=== PATIENT | male | born 1960 | race Caucasian/White ===

== ENCOUNTER 2023-12-01 22:00 | Emergency (ER) | payer OTHER, SELFPAY ==
[2023-12-01 22:18] VITALS: BP 190/99
[2023-12-01 22:24] LABS: % Eosinophils 5.1 % (0-6); % Immature Granulocytes 0.3 % (0-0.5); % Lymphocytes 31.3 % (20.5-51.1); % Monocytes 7.2 % (1.7-9.3); % Neutrophils 55.1 % (42.2-75.2); Absolute Basophils 0.1 10^3/uL (0-0.2); Absolute Eosinophils 0.4 10^3/uL (0-0.7); Absolute Lymphocytes 2.3 10^3/uL (1.2-3.4); Absolute Monocytes 0.5 10^3/uL (0.1-0.6); Hematocrit 39.5 % (39.0-52.0); Hemoglobin 13.4 g/dL (13.0-18.0); Mean Corp Hgb Conc. 33.9 g/dL (33.0-37.0); Mean Corpuscular Volume 91.4 fL (80.0-94.0); Mean Platelet Volume 10.8 fL (7.4-10.4); Nucleated Red Blood Cells % 0 % (-); Platelet Count 234 10^3/uL (130-400); Red Blood Cell Count 4.32 10^6/uL (4.70-6.10); Red Cell Dist. Width 13.4 % (11.5-14.5); White Blood Cell Count 7.2 10^3/uL (4.8-10.8)
[2023-12-01 22:38] LABS: ALT (SGPT) 24 U/L (0-50); AST (SGOT) 27 U/L (17-59); Albumin 4.4 g/dl (3.5-5.0); Alkaline Phosphatase 97 U/L (38-126); Blood Urea Nitrogen 17 mg/dl (9-20); Calcium 9.3 mg/dl (8.4-10.2); Carbon Dioxide 27 mmol/L (22-30); Chloride 108 mmol/L (98-107); Glucose 117 mg/dl (70-99); Potassium 4.1 mmol/L (3.5-5.1); Sodium 145 mmol/L (135-145); Total Bilirubin 0.3 mg/dl (0.2-1.3); Total Protein 7.3 g/dl (6.3-8.2); eGFR > 60.00
[2023-12-01 22:50] LABS: Troponin I < 0.012 ng/ml
[2023-12-02] VITALS (9 sets, daily range): BP systolic 152–187; BP diastolic 82–94; BMI 26.0
--- NOTE | 2023-12-02 01:21 | ED.GENMED ---
History of Present Illness
<BERNA Thrasher - Last Filed: 12/02/23 04:27>
General
Chief Complaint: Chest Pain
Source: patient
Time Seen by Provider: 12/02/23 01:19
Nursing documentation reviewed up to this point in time: agreed with
History of Present Illness
History of Present Illness:
A 63 yo male with a PMH of HTN, HF, PE, peripheral neruopathy presents to the ED for chest pain x 12 hours. He states the hes unaware of when the chest pain began but assumes it to be around 12 noon yesterday. He stated that he's had similar
episodes of similar chest pain in he past, but that today it was much worse than it has ever been before. He states the it feels like someone is sitting on his chest and that theres an intense pressure overlying his chest. He states that his pain
has improved slightly since admission. He states that he took his BP meds after sxs started but that they didn't help. He denies any radiation. He stated that after sx onst his bp continued to rise after taking his bp meds and that was why he came
in today. He states that his bp normally runs in the 140s and 130s systolic. 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 Over the last 2 years hes states that his EF has
decreased and is now sitting at 30%. He follows with his crew foreman annually with his most recent myocardial stress test being on 10/02/22 to which he stated was normal. He denies SOB, cough, abdominal pain, N/V, dizziness, or palpitations.
Past History
<BERNA Thrasher - Last Filed: 12/02/23 04:27>
Past History
ED Past Medical History: CHF, Other (pneumonia, cardiomyopathy), Other (pulmonary embolism) and Other (LV thrombus)
ED Past Surgical History: Cardiac
Social History
Tobacco: Non-smoker
Alcohol: None
Drug: None
Personal:
Living: with family
Employment: Employed
Family History
Family History: CAD
Review of Systems
<BERNA Thrasher - Last Filed: 12/02/23 04:27>
Review of Systems
All Other Systems: ROS reviewed and negative except as documented in HPI and ROS
Phy Exam
<BERNA Thrasher - Last Filed: 12/02/23 04:27>
General Physical Exam
General Presentation: well appearing and no apparent distress
General Skin: warm and dry
General Habitus: normal
General Mental: alert
General Hydration: appears well hydrated
Eye Exam
Eye Exam: PERRL and EOMI
Cardiovascular Exam
Cardiovascular Exam: no edema, no gallop, no murmur, normal peripheral pulses and bradycardia
Pulmonary Exam
Pulmonary Exam: lungs clear, no respiratory distress, no rales, no crackles, no wheezing and no cough
Neurological Exam
Neurological Exam: alert and oriented x3
Musculoskeletal Exam
Musculoskeletal Exam: full ROM
Skin Exam
Skin Exam: normal color, warm/dry and no rash
Psychiatric Exam
Psychiatric Exam: normal mood/affect
Scores
<Jair Rizzo [facility] - Last Filed: 12/02/23 04:27>
Heart Score for Chest Pain Patients
STEMI patient?: No
History: Slightly or Non-Suspicious
ECG: Nonspecific Repolarization (t wave inversion v3 and v4)
Age: >45 - <65 years
Risk Factors: 1 or 2 Risk Factors
Troponin: </= Normal Limit
Heart Score for Chest Pain Patients: 3
Heart Score Risk: 2.5% MACE over next 6 weeks
<Lex Pride DO - Last Filed: 12/02/23 04:31>
Heart Score for Chest Pain Patients
Heart Score for Chest Pain Patients: 3
Heart Score Risk: 2.5% MACE over next 6 weeks
Course
<BERNA Thrasher - Last Filed: 12/02/23 04:27>
Orders/Labs/Results
Orders:
Orders
12/01/23 22:02
Electrocardiogram (*1) Urgent
Reason for Study: Chest Pain
12/01/23 22:03
EKG- Treatment ONCE
12/01/23 22:10
Complete Blood Count/With Diff Urgent
Comprehensive Metabolic Panel Urgent
Troponin I Urgent
12/02/23 02:05
CR Chest - 2 Views Urgent
Comment:
Reason For Exam: cp
12/02/23 02:12
HydrALAZINE [Apresoline] 10 mg IV NOW STA
12/02/23 02:17
NT-proBNP Urgent
Troponin I Urgent
Abnormal Lab Results
12/01/23
22:10
RBC 4.32 L 10^6/uL
(4.70-6.10)
MPV 10.8 H fL
(7.4-10.4)
Chloride 108 H mmol/L
(98-107)
Glucose 117 H mg/dl
(70-99)
12/01/23 22:10
12/01/23 22:10
Vital Signs
Initial and Last Documented VS:
Initial Vital Signs
Temp Pulse Resp BP Pulse Ox
97.7 F 60 16 190/99 99
12/01/23 22:18 12/01/23 22:18 12/01/23 22:18 12/01/23 22:18 12/01/23 22:18
Last Documented Vital Signs
Temp Pulse Resp BP Pulse Ox
97.6 F 62 19 179/91 99
12/02/23 00:36 12/02/23 02:30 12/02/23 02:30 12/02/23 02:25 12/02/23 02:30
<Lex Pride, DO - Last Filed: 12/02/23 04:31>
Orders/Labs/Results
Orders:
Orders
12/01/23 22:02
Electrocardiogram (*1) Urgent
Reason for Study: Chest Pain
12/01/23 22:03
EKG- Treatment ONCE
12/01/23 22:10
Complete Blood Count/With Diff Urgent
Comprehensive Metabolic Panel Urgent
Troponin I Urgent
12/02/23 02:05
CR Chest - 2 Views Urgent
Comment:
Reason For Exam: cp
12/02/23 02:12
HydrALAZINE [Apresoline] 10 mg IV NOW STA
12/02/23 02:17
NT-proBNP Urgent
Troponin I Urgent
Abnormal Lab Results
12/01/23
22:10
RBC 4.32 L 10^6/uL
(4.70-6.10)
MPV 10.8 H fL
(7.4-10.4)
Chloride 108 H mmol/L
(98-107)
Glucose 117 H mg/dl
(70-99)
12/01/23 22:10
12/01/23 22:10
Vital Signs
Initial and Last Documented VS:
Initial Vital Signs
Temp Pulse Resp BP Pulse Ox
97.7 F 60 16 190/99 99
12/01/23 22:18 12/01/23 22:18 12/01/23 22:18 12/01/23 22:18 12/01/23 22:18
Last Documented Vital Signs
Temp Pulse Resp BP Pulse Ox
97.6 F 62 19 179/91 99
12/02/23 00:36 12/02/23 02:30 12/02/23 02:30 12/02/23 02:25 12/02/23 02:30
<BERNA Thrasher - Last Filed: 12/02/23 04:27>
MDM/Problems Addressed
Differential Diagnosis Includes:
chf exacerbation, UT, hypertensive urgency
<Lex Pride DO - Last Filed: 12/02/23 04:31>
*Critical Care Note
Total Time (30-74mins, 75-104mins- exclusive of procedures): Not Applicable
<BERNA Thrasher - Last Filed: 12/02/23 04:27>
Update Note
Update Note:
0216: 12/02/23: Discussed labs, history, and plan with Dr. Pride and patient. Will administer hydralazine to reduce pressure. Will order chest xray. Will recheck troponins, bnp. Plan to instruct patient to patient to follow up with with his
crew foreman within 1 week of discharge.
0425: 12/02/2023: Talked with patient about sxs. States chest pressure/ weight has improved significantly since administration of hydralazine. BPs are sitting low 150s/80s right now. Will continue to discuss care with Dr. Pride and update patient
as needed.
ED Attending Note
<BENRA Thrasher - Last Filed: 12/02/23 04:27>
-
Portions of this chart may have been created with voice recognition software.� Occasional wrong word or��sound alike� substitutions may have occurred due to the inherent limitations of voice recognition software.
<Lex Pride DO - Last Filed: 12/02/23 04:31>
ED Attending Note
Patient seen and examined by attending physician: Yes
ED Attending Note:
Seen with student examined independently prior records reviewed low EF patient, clean coronaries by patient report hypertension follow-up with Dr. Day and EP, had cardiac devices which have been removed, presents with shortness of breath and chest
pressure associated with high blood
Discharge Plan
Departure
Patient Disposition: Home (Routine Discharge)
Date of Disposition: 12/02/23
Time of Disposition: 04:30
Patient with high blood pressure during this ER visit?: Yes
Condition: Good
Covid-19: Negative COVID-19
Discharge Problem:
Chest pain
Instructions: Chest Pain DCA Follow Up
Prescriptions:
No Action
carvedilol 12.5 MG tablet
12.5 mg PO BID
aspirin 325 MG tablet
325 mg PO DAILY
Patient Comments:
States only takes when he remembers. Did not take today.
losartan 50 MG tablet
100 mg PO DAILY
cyclobenzaprine 10 MG tablet
10 mg PO TIDPRN PRN (Reason: back pain)
oxycodone-acetaminophen 5 MG/325 MG tablet
1 tab PO Q4HPRN PRN (Reason: pain) Qty: 17 0RF
gabapentin 300 MG capsule
300 mg PO BID Qty: 14 0RF
lidocaine 1 PATCH adhesive patch,medicated
1 patch topical DAILY Qty: 5 0RF
Rx Instructions:
ON FOR 12 HOURS, OFF FOR 12 HOURS
naproxen 500 MG tablet
500 mg PO BID Qty: 14 0RF
Rx Instructions:
Take with food.
Referrals:
Jeyson Pimentel MD [Family Provider] - Next open appointment
Dharmesh Day MD [Active] - Next open appointment
Interventions
Interventions:
*Risk Screen - Suicide Last Done: 12/01/23 22:18
*Neglect/Abuse Screening Last Done: 12/01/23 22:18
Discharge Date and Time
Print Language: BENGALI
[2023-12-02] MEDS: APRESOLINE 10 MG IV (02:25)
[2023-12-02 02:57] LABS: NT-proBNP 135 pg/ml; Troponin I < 0.012 ng/ml
== END 2023-12-02 05:37 | disposition home or self-care (01) ==
LOC: EMR 22:00
PROVIDERS: Emergency Medicine; EMERGENCY PHYSICIAN Emergency Medicine; FAMILY PHYSICIAN Family Medicine
DX: R07.89 Other chest pain (principal); I11.0 Hypertensive heart disease with heart failure; I50.9 Heart failure, unspecified; Z86.711 Personal history of pulmonary embolism
CPT/HCPCS: 99285; 96374; 71046; 80053; 83880; 84484; 85025; 93005

== ENCOUNTER → 2023-12-25 09:07 | Outpatient (REF) | payer OTHER, SELFPAY | LOC: RCS 09:07 | PROVIDERS: ATTENDING PHYSICIAN Physician Assistant; FAMILY PHYSICIAN Family Medicine | DX: I42.8 Other cardiomyopathies (principal); I10 Essential (primary) hypertension; I47.20 Ventricular tachycardia, unspecified; R06.09 Other forms of dyspnea | CPT/HCPCS: 93306 ==

== ENCOUNTER 2024-01-12 17:07 | Inpatient (IN) | payer OTHER, SELFPAY ==
[2024-01-12] VITALS (15 sets, daily range): BP systolic 107–170; BP diastolic 73–96; BMI 24.3
[2024-01-12 12:25] LABS: % Basophils 0.8 % (0-2); % Eosinophils 5.3 % (0-6); % Immature Granulocytes 0.3 % (0-0.5); % Lymphocytes 27.1 % (20.5-51.1); % Monocytes 7.3 % (1.7-9.3); % Neutrophils 59.2 % (42.2-75.2); Absolute Basophils 0.1 10^3/uL (0-0.2); Absolute Eosinophils 0.3 10^3/uL (0-0.7); Absolute Lymphocytes 1.7 10^3/uL (1.2-3.4); Absolute Monocytes 0.5 10^3/uL (0.1-0.6); Absolute Neutrophils 3.7 10^3/uL (1.4-6.5); Hematocrit 40.7 % (39.0-52.0); Hemoglobin 14.1 g/dL (13.0-18.0); Mean Corp Hgb Conc. 34.6 g/dL (33.0-37.0); Mean Corpuscular Hgb 30.9 pg (27.0-31.0); Mean Corpuscular Volume 89.1 fL (80.0-94.0); Nucleated Red Blood Cells % 0 % (-); Platelet Count 219 10^3/uL (130-400); Red Blood Cell Count 4.57 10^6/uL (4.70-6.10); Red Cell Dist. Width 12.3 % (11.5-14.5); White Blood Cell Count 6.3 10^3/uL (4.8-10.8)
[2024-01-12 12:40] LABS: Albumin 4.4 g/dl (3.5-5.0); Carbon Dioxide 24 mmol/L (22-30); eGFR > 60.00
[2024-01-12 13:00] LABS: Troponin I 0.043 ng/ml
[2024-01-12 13:03] LABS: ALT (SGPT) 32 U/L (0-50); AST (SGOT) 36 U/L (17-59); Alkaline Phosphatase 111 U/L (38-126); Blood Urea Nitrogen 22 mg/dl (9-20); Calcium 9.4 mg/dl (8.4-10.2); Chloride 106 mmol/L (98-107); Glucose 148 mg/dl (70-99); Potassium 4.4 mmol/L (3.5-5.1); Sodium 142 mmol/L (135-145); Total Bilirubin 0.4 mg/dl (0.2-1.3); Total Protein 7.6 g/dl (6.3-8.2)
--- NOTE | 2024-01-12 13:21 | ED.GENMED ---
History of Present Illness
General
Chief Complaint: Chest Pain
Time Seen by Provider: 01/12/24 13:10
History of Present Illness
History of Present Illness:
63-year-old male presents to the emergency department for evaluation of intense chest pain that began at the completion of intercourse last night, pain did resolve briefly this morning however when he went to work the symptoms abruptly worsened
despite minimal exertion. He continues to have pain while at rest, currently rated 8 out of 10. Is never experienced similar pain. Does have a known history of cardiomyopathy with a last ejection fraction on echo of 45%. He has not taken any
medication for the symptoms this morning. Denies shortness of breath, fever, or chills.
Past History
Past History
ED Past Medical History: CHF, Other (pneumonia, cardiomyopathy), Other (pulmonary embolism) and Other (LV thrombus)
ED Past Surgical History: Cardiac
Social History
Tobacco: Non-smoker
Alcohol: None
Drug: None
Personal:
Living: with family
Employment: Employed
Family History
Family History: CAD
Review of Systems
Review of Systems
Allergies reviewed?: Yes
All Other Systems: ROS reviewed and negative except as documented in HPI and ROS
Phy Exam
Physical Exam
Physical Exam:
GEN: Well appearing, NAD, WDWN
HEENT: Oral mucosa moist, no scleral icterus
Cardiac: Regular rate and rhythm, no murmurs
Lung: No respiratory distress, no tachypnea, lungs clear to auscultation bilaterally
MSK: No gross deformity or injuries
Skin: Good color, no pallor or jaundice, no rashes
Neuro: AO x3, moves all extremities freely
Psych: Calm, cooperative
Scores
Heart Score for Chest Pain Patients
STEMI patient?: No
History: Highly Suspicious
ECG: Nonspecific Repolarization
Age: >45 - <65 years
Risk Factors: 1 or 2 Risk Factors
Troponin: >1 - <3 x Normal Limit
Heart Score for Chest Pain Patients: 6
Heart Score Risk: 20.3% MACE over next 6 weeks
Course
Orders/Labs/Results
Orders:
Orders
01/12/24 11:49
EKG [Electrocardiogram (*1)] Stat
Reason for Study: Chest Pain
EKG- Treatment ONCE
01/12/24 12:11
Complete Blood Count/With Diff Urgent
Comprehensive Metabolic Panel Urgent
NT-proBNP Urgent
Comment: ADD ON
Troponin I Urgent
01/12/24 13:18
Add On- LAB Urgent
Tests Added?: BNP
Aspirin Chewable [Low Strength Aspirin] 324 mg PO NOW STA
CR Chest Portable - 1 View Urgent
Comment:
Reason For Exam: chest pain
Reason Study Needs to be Portable: Unable to Transport
01/12/24 13:19
Nitroglycerin Sublingual [Nitrostat (Sublingual)] 0.4 mg SL [id number] PRN
01/12/24 13:31
Protime/PTT Urgent
01/12/24 14:13
PTT Urgent
Comment: Obtain baseline before beginning heparin infusion if not already collected
Heparin 4,000 units IV NOW STA
Pharmacy Request to Place See Dose Instructions PO NOW STA
Discontinue all Active Warfarin orders?: Yes
Nursing to Place Non Medication Order As Directed
Physician Order: PTT 6 hours after initial start of Heparin infusion
01/12/24 14:15
Heparin 47528 Units/250 ml 25,000 units in 250 ml IV PER PROTOCOL
Weight to be used for heparin protocol in kilograms (kg):: 72.575
Protocol:: Cardiac Tx/Acute Coronary
PTT Goal Range to be used:: PTT 73 to 111 seconds
Order type:: Initial
INITIAL Infusion Dose (UNITS/KG/hr) & then follow protocol:: 15 units/kg/hr
Infusion Dose in UNITS/hr & then follow protocol (UNITS/hr):: 1,100
INFUSION RATE in mL/hr & then follow protocol (mL/hr):: 11
PTT less than or equal to 64 seconds:: Increase rate by 200 units/hr (+ 2 mL/hr)
PTT 64.1 to 72.9 seconds:: Increase rate by 100 units/hr (+ 1 mL/hr)
PTT 73 to 111 seconds:: Target Range. No change in rate.
PTT 111.1 to 130.9 seconds:: Decrease rate by 100 units/hr (- 1 mL/hr)
PTT 131 to 199.9 seconds:: HOLD for 1 hr. Then decrease rate by 200 units/hr (- 2 mL/hr)
PTT greater than or equal to 200 seconds:: HOLD for 2 hrs & Notify Provider. Then decrease by 200 units/hr (-
2 mL/hr)
Lab follow-up:: Each change, PTT q6h until 2 consecutive are therapeutic. Then PTT
daily.
Nitroglycerin 100 mg/250 ml [Nitroglycerin Premix] 100 mg in 250 ml IV PER PROTOCOL
Initial dose in mcg/min, then titrate:: 40
Titrate to keep:: Chest Pain Free
Titrate by mcg/min:: 5 mcg/min, may increase by 10 mcg/min if dose > 20 mcg/min
Frequency of titrations (minutes):: every 3-5 minutes
Maximum dose in mcg/min:: 200
Begin to taper infusion when:: Remained at goal for 2hrs
Taper by mcg/min:: 5 mcg/min
Frequency of taper (minutes) if patient maintains goal:: 30
Taper to off?: Yes
If infusion off & no longer maintaining goal:: Contact Provider
01/12/24 15:[address] See Dose Instructions IV DIRECTED
Abnormal Lab Results
01/12/24
12:11
RBC 4.57 L 10^6/uL
(4.70-6.10)
MPV 11.0 H fL
(7.4-10.4)
BUN 22 H mg/dl
(9-20)
Glucose 148 H mg/dl
(70-99)
Troponin I 0.043 H* ng/ml
01/12/24 12:11
01/12/24 12:11
Vital Signs
Initial and Last Documented VS:
Initial Vital Signs
Temp Pulse Resp BP Pulse Ox
97.6 F 86 16 170/96 100
01/12/24 12:00 01/12/24 12:00 01/12/24 12:00 01/12/24 12:00 01/12/24 12:00
Last Documented Vital Signs
Temp Pulse Resp BP Pulse Ox
97.6 F 86 16 140/108 100
01/12/24 12:00 01/12/24 12:00 01/12/24 12:00 01/12/24 14:04 01/12/24 12:00
MDM/Problems Addressed
MDM/Problems Addressed:
Patient presenting with unstable chest pain that began at the completion of intercourse but persisted at rest this morning. EKG is comparable to past tracings however troponin is elevated and he continues with chest pain in the emergency department
despite multiple doses of sublingual nitroglycerin. High level of concern for ACS/NSTEMI, will admit for cardiology evaluation, IV heparin and IV nitroglycerin initiated in the emergency department due to persistent pain
Comment
Comment:
EKG independently interpreted by me reveals a normal sinus rhythm at a rate of 73 with lateral T wave inversions and ST depressions comparable to prior EKG tracings
*Critical Care Note
Total Time (30-74mins, 75-104mins- exclusive of procedures): 40 minutes
comment:
Critical care time: 40 minutes
Critical care time was exclusive of: Separately billable procedures, treating other patients, and teaching time
Critical care was necessary to treat or prevent imminent or life-threatening deterioration of the following conditions: NSTEMI
Critical care time spent personally by me on the following activities:
[x] Review of old charts
[x] Obtaining history from patient or surrogate
[x] Ordering and review of the laboratory studies
[x] Ordering and review of radiographic studies
[x] Ordering and performing treatments and interventions
[x] Patient patient's response to treatment
[x] Development of treatment plan with patient or surrogate
ED Attending Note
-
Portions of this chart may have been created with voice recognition software.� Occasional wrong word or��sound alike� substitutions may have occurred due to the inherent limitations of voice recognition software.
Discharge Plan
Departure
Patient Disposition: Admit
Date of Disposition: 01/12/24
Time of Disposition: 14:16
Admit to: IVU
Presentation/result/management discussed w/ accepting MD/DO: Hospitalist
Discharge Problem:
Acute non-ST elevation myocardial infarction (NSTEMI)
Prescriptions:
No Action
acetaminophen [Tylenol] 325 mg Tablet
650 mg PO DAILYPRN PRN (Reason: mild pain)
carvedilol [Coreg] 6.25 mg Tablet
6.25 mg PO BID
amlodipine [Norvasc] 5 mg Tablet
5 mg PO QPM
naproxen sodium [Aleve] 220 mg Tablet
440 mg PO BIDPRN PRN (Reason: mild pain)
rosuvastatin [Crestor] 20 mg Tablet
20 mg PO DAILY
Centrum MultiGummies 80 mcg Tablet,Chewable
1 tab PO Q48H
magnesium oxide 400 mg magnesium Tablet
400 mg PO DAILY
Neuriva Original 100-100 mg Capsule
1 cap PO DAILY
Focus Factor capsule
1 cap PO DAILY
Discharge Date and Time
Print Language: CYMRO
[2024-01-12] MEDS: LOW STRENGTH ASPIRIN 324 MG PO (13:27)
[2024-01-12] MEDS: NITROSTAT (SUBLINGUAL) 0.4 MG SL ×3 (13:28→14:04)
[2024-01-12 13:55] LABS: PT 12.4 Sec (11.4-14.6)
[2024-01-12] MEDS: NITROGLYCERIN PREMIX 250 IV (14:31)
[2024-01-12 14:43] LABS: NT-proBNP 150 pg/ml
[2024-01-12] MEDS: HEPARIN 4000 UNITS IV (14:59)
[2024-01-12] MEDS: HEPARIN 25000 UNITS/250 ML IV (15:00)
--- NOTE | 2024-01-12 15:20 | CON.CAR ---
Addendum entered and electronically signed by Bud Wagoner DO 01/12/24 16:04:
I saw and examined the patient.
The Senior Software Development Engineer's note was reviewed and I agree with the note.
Comment:
Plan:
Given his recurrent symptoms and second ER visit with chest pain, cardiovascular risk factors and rising troponins, discussed cardiac cath to eval coronary anatomy. He is agreeable to this.
Pending cath findings, he will require improved bp control as both presentations involved him being very hypertensive with SBPs 190 mmHgs today.
Cont Coreg, Norvasc, for now.
Cont IV Heparin
Cont IV nitro
EKG with ST-T changes but similar to prior EKG.
Recent echo with EF 45%, slight improvement in ER
Last cath in 2007 without obstructive CAD
Pending results of cath will consider repeat echo.
Pt and his agree and they were appreciative.
Original Note:
Consultation
Consultation Request
Date/Time Consultation Requested: 01/12/2024
Date/Time Consultation Performed: 01/12/2024
Requesting Provider: Ranjeet Holloway PA-C
Performing Provider: Emily Ramirez PA-C for Dr. Bud Wagoner
Reason for Consultation: Chest pain
Medical History
-
History of Present Illness:
Patient is a 63-year-old male with past medical history significant for nonischemic cardiomyopathy, hypertension, DVT/PE, hyperlipidemia, NSVT status post ICD with subsequent ICD explant in 2019 who presents to emergency department 01/12/2024 with
chest pain radiating into left arm. Patient was in emergency department in November 2023 for chest pain and was noted to be hypertensive. Troponins were negative and symptoms improved with treatment of blood pressure. He underwent an outpatient
echocardiogram in December 2023 which showed EF of 45% with mild global hypokinesis. Patient reports he was chest pain free until the late evening of 01/10 when he developed chest pain after having intercourse. Patient went to sleep and noted
waxing and waning chest discomfort throughout the night. Upon awakening while getting ready to go to work chest pain became very intense with radiation down his left arm. On presentation to emergency department he was once again noted to be
hypertensive with blood pressure of 192/108. EKG showed sinus rhythm with T wave abnormalities in lateral leads. Initial troponin was 0.043. Chest x-ray showed no acute cardiopulmonary disease. Patient was provided sublingual nitroglycerin with
improvement of chest discomfort and blood pressure. He was placed on IV nitro and heparin drip. At time of this evaluation patient currently denying chest pain but reports he has an ache or heaviness in his chest. He also reports recently he has
had increased GERD and reflux symptoms and has been using a lot of Mylanta.
Past medical history:
Nonischemic cardiomyopathy
Hypertension
DVT/PE
History of LV thrombus
Hyperlipidemia
NSVT
ICD implant that was subsequently explanted in 2019 after lead fracture
Past Medical History
Past Medical History: Other (See HPI)
Past Surgical History: Cardiac (ICD implant with subsequent explant in 2019), Orthopedic (Meniscus repair), Urological (Vasectomy) and Other (Lumbar injections)
Social History
Tobacco: Non-Smoker
Alcohol: None
Drug: None
Personal:
Living: With Family
Employment: Employed
Family History
Family History: CAD
Allergies / Home Medications
Allergy/AdvReac Type Severity Reaction Status Date / Time
No Known Allergies Allergy Verified 12/01/23 22:18
�Medication �Instructions �Recorded �Confirmed �Type
Focus Factor 1 cap PO DAILY 01/12/24 01/12/24 History
acetaminophen 325 mg tablet 650 mg PO DAILYPRN PRN mild pain 01/12/24 01/12/24 History
(Tylenol)
amlodipine 5 mg tablet (Norvasc) 5 mg PO QPM 01/12/24 01/12/24 History
carvedilol 6.25 mg tablet (Coreg) 6.25 mg PO BID 01/12/24 01/12/24 History
coffee extract 100 mg-phosphatidyl 1 cap PO DAILY 01/12/24 01/12/24 History
serine 100 mg capsule (Neuriva
Original)
magnesium oxide 400 mg PO DAILY 01/12/24 01/12/24 History
multivitamin with minerals-folic 1 tab PO Q48H 01/12/24 01/12/24 History
acid 80 mcg chewable tablet
naproxen sodium 220 mg tablet 440 mg PO BIDPRN PRN mild pain 01/12/24 01/12/24 History
(Aleve)
rosuvastatin 20 mg tablet (Crestor) 20 mg PO DAILY 01/12/24 01/12/24 History
Review of Systems
-
History Source: Patient
All other systems: Negative unless noted
Physical Exam
Vital Signs
Temp Pulse Resp BP Pulse Ox
97.6 F 72 18 128/77 98
01/12/24 12:00 01/12/24 14:45 01/12/24 14:45 01/12/24 14:30 01/12/24 14:45
GEN: No distress, awake, Ox3
HEENT: supple, anicteric, mmm
LUNGS: Few faint crackles at left base otherwise CTA, no wheezes/rales
CV: Reg, S1/S2, no murmur, rub or gallop
ABD: soft, BS+, NT/ND
EXT: No edema, clubbing or cyanosis
NEURO: Gross non-focal
SKIN: No rash, warm, dry, pink
Lab Results
01/12/24 12:11
01/12/24 12:11
Troponin I 0.043 ng/ml H* 01/12/24 12:11
Ixj-T-Lxjuhuulwpo Pept 150 pg/ml 01/12/24 12:11
Impression / Plan
-
PCP: Jeyson back neck
Stewarding Supervisor: Dharmesh Day
Impression:
Presents 01/12/2024 with waxing and waning chest pain associated with pain in left arm
Abnormal troponin
Hypertensive urgency
Nonischemic cardiomyopathy
Hypertension
DVT/PE
History of LV thrombus
Hyperlipidemia
NSVT
ICD implant that was subsequently explanted in 2019 after lead fracture
Echo 12/25/2023: EF 45% with borderline LVH and mild global hypokinesis. No significant valvular disease. Normal PAP
Echo 11/07/2022: EF 35 to 40%. Global hypokinesis. Mild concentric LVH. No significant valvular disease
Cardiac cath 01/12/2024: Pending
Cardiac catheterization 2007: No significant coronary artery disease
Plan:
-Presents 01/12/2024 with waxing and waning chest pain starting 01/11/24 worsening in morning of 01/12/24 associated with pain in left arm prompting patient to come to emergency department.
-Hypertensive urgency as patient was found to be hypertensive on arrival with blood pressure of 170/96, 192/108.
-Chest x-ray without acute abnormality. EKG abnormal at baseline with T wave abnormality in anterolateral leads similar to prior tracings.
-Abnormal troponin, initial 0.043 with repeat 0.078. Unclear if this is related to hypertensive urgency or ACS.
-Patient's symptoms improved with sublingual nitroglycerin and currently on IV nitro drip as well as heparin drip. Blood pressure has also normalized
-Given patient has been in emergency department twice in the last 6 weeks plan is to move forward with cardiac catheterization to rule out ischemia as a cause of his chest pain
-Patient will need more intensive blood pressure management. Pending results of catheterization can decide which antihypertensive agent can be advanced
-Would check lipids in a.m.
-Patient had echo 12/25/2023 with EF 45% and global hypokinesis and no significant valvular disease. Would hold on repeating at this time
-Pending results of catheterization will depend the patient should remain on IV heparin.
HPI 01/12/24:
Patient is a 63-year-old male with past medical history significant for nonischemic cardiomyopathy, hypertension, DVT/PE, hyperlipidemia, NSVT status post ICD with subsequent ICD explant in 2019 who presents to emergency department 01/12/2024 with
chest pain radiating into left arm. Patient was in emergency department in November 2023 for chest pain and was noted to be hypertensive. Troponins were negative and symptoms improved with treatment of blood pressure. He underwent an outpatient
echocardiogram in December 2023 which showed EF of 45% with mild global hypokinesis. Patient reports he was chest pain free until the late evening of 01/10 when he developed chest pain after having intercourse. Patient went to sleep and noted
waxing and waning chest discomfort throughout the night. Upon awakening while getting ready to go to work chest pain became very intense with radiation down his left arm. On presentation to emergency department he was once again noted to be
hypertensive with blood pressure of 192/108. EKG showed sinus rhythm with T wave abnormalities in lateral leads. Initial troponin was 0.043. Chest x-ray showed no acute cardiopulmonary disease. Patient was provided sublingual nitroglycerin with
improvement of chest discomfort and blood pressure. He was placed on IV nitro and heparin drip. At time of this evaluation patient currently denying chest pain but reports he has an ache or heaviness in his chest. He also reports recently he has
had increased GERD and reflux symptoms and has been using a lot of Mylanta.
Data Reviewed
-
EKG: Report Reviewed by me, Discussed with Physician, Discussed with Nurse, Discussed with Patient and Discussed with Family
Radiology: Report Reviewed by me, Discussed with Physician, Discussed with Nurse, Discussed with Patient and Discussed with Family
Labs: Labs Reviewed by me, Discussed with Physician, Discussed with Nurse, Discussed with Patient and Discussed with Family
Old Records: Reviewed
[2024-01-12 15:35] LABS: Troponin I 0.078 ng/ml
--- NOTE | 2024-01-12 15:45 | HPS.HSE ---
Family Physician
-
Family Physician: Jeyson Pimentel
Chief Complaint
-
chest pain
History of Present Illness
63-year-old male past medical history of ischemic cardiomyopathy with EF 45% ventricular tachycardia, pulmonary embolism, LV thrombus, prior DVT,, hypertension, presenting with intense chest pain after having sex last night. Pain did resolve
briefly with this morning but abruptly got worse despite minimal exertion. He continues to have pain while at rest. He had never had similar pain before.
He denies smoking. He drinks alcohol occasionally.
Medical History
Past Medical History
Past Medical History: Reports Other ( ischemic cardiomyopathy with EF 45% ventricular tachycardia, pulmonary embolism, LV thrombus, prior DVT,, hypertension,)
Past Surgical History: Reports None
Social History
Tobacco: Non-smoker
Alcohol: Occasional
Drug: None
Family History
Family History: Not pertinent
Allergies / Home Medications
Allergies reflects when Allergies were last updated in [facility].
Home Medications with original date entered in [facility]
Allergy/Medication List:
Allergies
Allergy/AdvReac Type Severity Reaction Status Date / Time
No Known Allergies Allergy Verified 12/01/23 22:18
Home Medications
Focus Factor 1 cap PO DAILY 01/12/24
acetaminophen 325 mg tablet (Tylenol) 650 mg PO DAILYPRN PRN mild pain 01/12/24
amlodipine 5 mg tablet (Norvasc) 5 mg PO QPM 01/12/24
carvedilol 6.25 mg tablet (Coreg) 6.25 mg PO BID 01/12/24
coffee extract 100 mg-phosphatidyl serine 100 mg capsule (Neuriva Original) 1 cap PO DAILY 01/12/24
magnesium oxide 400 mg PO DAILY 01/12/24
multivitamin with minerals-folic acid 80 mcg chewable tablet 1 tab PO Q48H 01/12/24
naproxen sodium 220 mg tablet (Aleve) 440 mg PO BIDPRN PRN mild pain 01/12/24
rosuvastatin 20 mg tablet (Crestor) 20 mg PO DAILY 01/12/24
Review of Systems
-
History Source: Patient
A 12 point ROS was completed and negative except as noted: Yes
Constitutional: Reports No Symptoms
EENT: Reports No Symptoms
Respiratory: Reports See HPI
Cardiac: Reports See HPI
Abdomen/GI: Reports No Symptoms
: Reports No Symptoms
Musculoskeletal: Reports No Symptoms
Skin: Reports No Symptoms
Neurological: Reports No Symptoms
Endocrine: Reports No Symptoms
Hematologic/Lymphatic: Reports No Symptoms
Psych: Reports No Symptoms
Physical Exam
Vital Signs
Vital Signs
Temp Pulse Resp BP Pulse Ox
97.6 F 72 18 128/77 98
01/12/24 12:00 01/12/24 14:45 01/12/24 14:45 01/12/24 14:30 01/12/24 14:45
Physical Exam
General: Well Developed, Well Nourished and No Apparent Distress
HEENT: NormoCephalic, Moist mucous membranes and Atraumatic
Respiratory: Clear
Cardiac: S1/S2 and Regular Rhythm; No Murmur or Rub
GI: Soft, Non Tender, Non Distended and Normal Bowel Sounds; No Organomegaly
Rectal: Deferred by Provider
Musculoskeletal: No Clubbing, No Cyanosis and No Edema
Skin: No Rash
Neuro: Nonfocal/grossly intact
Laboratory Results
-
01/12/24 12:11
01/12/24 12:11
Laboratory Results
PT 12.4 Sec (11.4-14.6) 01/12/24 13:31
INR 0.90 01/12/24 13:31
APTT Cancelled 01/12/24 14:13
Total Bilirubin 0.4 mg/dl (0.2-1.3) 01/12/24 12:11
AST 36 U/L (17-59) 01/12/24 12:11
ALT 32 U/L (0-50) 01/12/24 12:11
Alkaline Phosphatase 111 U/L (38-126) 01/12/24 12:11
Troponin I 0.078 ng/ml H* D 01/12/24 14:52
Data Reviewed
-
Lab Data: Labs Reviewed by me
Old Records: Reviewed
Impression/Plan
-
IMPRESSION:
PLAN:
# NSTEMI
-EKG shows normal sinus rhythm
-Troponin 0.043
-Current troponins
-Aspirin given
-Nitroglycerin drip
-Heparin drip
-Cardiology consulted to decide on catheterization tomorrow
-N.p.o. past midnight
History of cardiomyopathy/HFrEF
-No longer with ICD
-EF of 45%
-Continue Coreg
History of ventricular tachycardia
History of PE/DVT
History of LV thrombus
Essential hypertension
-Continue amlodipine
Full code
DVT prophylaxis�heparin drip
N.p.o. past midnight
[2024-01-12 16:51] LABS: ACT-LR - POC 245 Seconds (116-155)
[2024-01-12 17:09] LABS: ACT-LR - POC 277 Seconds (116-155)
--- NOTE | 2024-01-12 17:41 | ITS.CL.CATH ---
Political Science Research Assistant - Catheterization
Cardiac Catheterization
Procedure Report:
LEFT HEART CATH AND CORONARY INTERVENTION
Date of Procedure: January 12, 2024
Referring: Dr. Bud Wagoner
PROCEDURES:
1. Left heart catheterization with coronary and single-plane left ventriculography
2. Successful stenting of mid circumflex into a terminal obtuse marginal branch with placement of a 3.5 x 22 mm [place] stent that was implanted at nominal pressures then postdilated with a 3.5 mm noncompliant balloon to 18 ruby
INDICATION: Non-ST segment elevation myocardial infarction
ACCESS: Right radial artery, 6 Turkmen sheath
HEMODYNAMICS (mmHg):
AO (s/d, m) : 106/76, 90
LV (s/d) : 107/8
LVEDP : 11
CORONARY FINDINGS
Dominance: Right
LEFT MAIN: Normal
LEFT ANTERIOR DESCENDING: The LAD arises normally from the left main and runs in the anterior interventricular groove. The proximal LAD has a 40% stenosis. The remainder of the LAD has minor nonfocal luminal irregularities over its course.
CIRCUMFLEX: The circumflex is a large-caliber nondominant vessel that gives rise to a sizable first obtuse marginal branch that bifurcates very proximally into 2 sizable daughter branches. The mid circumflex terminates in a large OM 2 that has an
ulcerated 95% proximal stenosis.
RIGHT CORONARY: The right coronary artery is a dominant vessel with minor irregularities
VENTRICULOGRAPHY: Left ventriculography is performed in an PRUETT projection. The digital single-plane left ventricular ejection fraction is visually estimated at 50%. The ventricle is mildly globally hypokinetic
ANGIOPLASTY PROCEDURE DETAIL: Upon review of the diagnostic catheterization films the decision was made to proceed with percutaneous revascularization of the ulcerated high-grade stenosis from the mid circumflex extending to a large terminal obtuse
marginal branch. A 180 mg loading dose of ticagrelor was given. Intravenous heparin was administered and the ACT was monitored throughout the procedure. The origin of the left main was cannulated with a 6 Turkmen EBU 3.5 guiding catheter and a BMW
guidewire across the stenotic segment and was advanced into the distal vessel. Primary stenting was performed with placement of a 3.5 x 22 mm Vladimir stent that was implanted at nominal pressures then postdilated with a 3.5 mm noncompliant balloon to
18 ruby with a nice angiographic result
RADIATION SUMMARY: Fluoro Time (min): 8.4, Dose (mGy): 867, DAP (Gy.cm2) : 52.2
CONCLUSIONS
1. Successful stenting of the mid circumflex into OM 2 with placement of a 3.5 x 22 mm [place]olin[place] stent that was implanted at nominal pressures and postdilated with a 3.5 mm noncompliant balloon
2. Low normal LVEF with estimated ejection fraction of 50% by visual estimation
RECOMMENDATIONS
1. Uninterrupted dual antiplatelet therapy for 1 year
2. Continue to trend serial troponin and check fasting lipid profile as well as hemoglobin A1c
3. Titrate medications as tolerated for blood pressure and heart rate control
Copy to: Dr. Dharmesh Day
[2024-01-12] MEDS: NORVASC 5 MG PO (18:21)
--- NOTE | 2024-01-12 18:33 | PTCARENOTE ---
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 monitor placed, NSR, EKG post cath completed. VSS. patient voices no c/o CP, SOB. informed patient that he will be on bedrest for 2 hours, verbalized
understanding. oriented to room and surroundings. eating dinner.
[2024-01-12] MEDS: COREG 12.5 MG PO (20:35)
[2024-01-12] MEDS: ENTRESTO 49 MG/51 MG 1 TAB PO (20:35)
[2024-01-13 03:50] VITALS: BP 121/78
[2024-01-13 04:42] LABS: % Basophils 0.5 % (0-2); % Eosinophils 3.8 % (0-6); % Immature Granulocytes 0.3 % (0-0.5); % Lymphocytes 18.8 % (20.5-51.1); % Monocytes 7.5 % (1.7-9.3); % Neutrophils 69.1 % (42.2-75.2); Absolute Basophils 0.1 10^3/uL (0-0.2); Absolute Eosinophils 0.4 10^3/uL (0-0.7); Absolute Lymphocytes 1.8 10^3/uL (1.2-3.4); Absolute Monocytes 0.7 10^3/uL (0.1-0.6); Absolute Neutrophils 6.8 10^3/uL (1.4-6.5); Hematocrit 39.7 % (39.0-52.0); Hemoglobin 13.8 g/dL (13.0-18.0); Mean Corp Hgb Conc. 34.8 g/dL (33.0-37.0); Mean Corpuscular Hgb 30.9 pg (27.0-31.0); Mean Corpuscular Volume 88.8 fL (80.0-94.0); Mean Platelet Volume 11.4 fL (7.4-10.4); Nucleated Red Blood Cells % 0 % (-); Platelet Count 209 10^3/uL (130-400); Red Blood Cell Count 4.47 10^6/uL (4.70-6.10); Red Cell Dist. Width 12.6 % (11.5-14.5); White Blood Cell Count 9.8 10^3/uL (4.8-10.8)
[2024-01-13 05:04] LABS: ALT (SGPT) 31 U/L (0-50); AST (SGOT) 43 U/L (17-59); Albumin 3.9 g/dl (3.5-5.0); Alkaline Phosphatase 97 U/L (38-126); Blood Urea Nitrogen 18 mg/dl (9-20); Calcium 8.8 mg/dl (8.4-10.2); Carbon Dioxide 20 mmol/L (22-30); Chloride 110 mmol/L (98-107); Estimated Creatinine Clearance 93 ml/min; Glucose 114 mg/dl (70-99); HDL Cholesterol 60 mg/dl; LDL Cholesterol, Calculated 96 mg/dl; Sodium 142 mmol/L (135-145); Total Bilirubin 0.4 mg/dl (0.2-1.3); Total Cholesterol 208 mg/dl (50-199); Total Protein 6.9 g/dl (6.3-8.2); Triglyceride 262 mg/dl (10-149); Very Low Density Lipoprotein 52 mg/dl (0-30); eGFR > 60.00
[2024-01-13 05:52] LABS: Hepatitis C Antibody Negative (Negative)
--- NOTE | 2024-01-13 06:47 | PTCARENOTE ---
Pt NSR on monitor. ambulates independently in the room. Denies pain or SOB. Safety measures in place
[2024-01-13 08:13] VITALS: BP 136/84
[2024-01-13] MEDS: ENTRESTO 49 MG/51 MG 1 TAB PO ×2 (09:12→20:04)
[2024-01-13] MEDS: COREG 12.5 MG PO ×2 (09:13→20:04)
[2024-01-13] MEDS: LOW STRENGTH ASPIRIN 81 MG PO (09:13)
[2024-01-13] MEDS: MAG-TAB SR 84 MG PO (09:13)
[2024-01-13] MEDS: CRESTOR 20 MG PO (09:13)
[2024-01-13] MEDS: BRILINTA 90 MG PO ×2 (09:13→20:04)
[2024-01-13] MEDS: THERAGRAN 1 TABLET PO (09:13)
--- NOTE | 2024-01-13 09:40 | PTCARENOTE ---
received patient this am, monitor shows NSR, VSS. troponin continues to go up, will obtain troponin at 10am as ordered. patient has no c/o CP, SOB, dizziness. right radial site intact, distal pulses palpable.
[2024-01-13 10:04] LABS: Glycohemoglobin (HgbA1c) 5.9 % (4.0-5.6)
--- NOTE | 2024-01-13 11:09 | CM ---
Chart reviewed. Patient is independent of ADLS, works at [employer], lives with his in a [address], [address], 0 DME. Plan is for the patient to return home. CM to follow
--- NOTE | 2024-01-13 11:09 | CM ---
Pricing on Brilinta 90mg BID through patient's [place]. com. cn Prescription Plan is $50 a month. Patient has commercial insurance and qualifies for the $5 copay card. Placed copay card in the patient's red discharge folder.
[2024-01-13 11:22] LABS: Troponin I 0.897 ng/ml
[2024-01-13 12:07] VITALS: BP 122/82
--- NOTE | 2024-01-13 13:20 | W.PN.CARDCBS ---
Addendum entered and electronically signed by Bud Wagoner DO 01/13/24 15:30:
I saw and examined the patient.
The Manager Of Selection And Assessment's note was reviewed and I agree with the note.
Comment:
Plan:
Reviewed cath with pt.
Cont DAPT for at least 1 year
Coreg increased and Entresto added. Monitor renal function
Cont Norvasc for now. He remains euvolemic. No evidence of HF
Trop peaked at 1.3.
Repeat limited echo pending.
Outpt follow up to be arranged.
Likely d/c next 24 hrs.
Original Note:
Today's Communication / Plan
-
Adjust BP meds as tolerated
Brilinta- cost check per CM
echo today
trend troponin to peak
monitor on tele another 24 hours
anticipate d/c in AM
Impression / Plan
-
PCP: Jeyson Pimentel MD
CDY: Dharmesh Day MD
63 y/o, PMH NICM, prior DVT/PE and LV Thrombus (resolved), NSVT s/p ICD and then removed in 2019 after lead fracture. Recent ER visit for hypertensive episode and chest pain that ruled out for ME. Followup echo with global HK and EF 45%. (improved
from 35-40% in 10/2022).
One night ago, developed chest pain after exertion, intermittent overnight, radiating down LUE, some dyspnea. Presented to ER again, BP 190/100s, and EKG revealed lateral T wave abn. First troponin 0.043.
Brought to [employer]- 95% distal LCx/Prox OM2 ulcerated lesion- s/p DAKSHA.
IMPRESSION:
NSTEMI
S/P prox OM2 PCI, 01/12/24
Cardiomyopathy, EF 45% (on echo 12/25/23)
HTN
HLD
GERD
NSVT s/p ICD implant (2007) with lead fracture and subsequent removal (2019)
DVT/PE, LV thrombus (resolved- no longer on anticoagulation)
PLAN:
Peak troponin 1.35
Tele- SB 50-60s, no vt/arrhythmia- monitor with increase in BB
cath site stable
DAPT w/asa, brilinta- CM cost check- pt ok w/cost
repeat echo today
Meds adjusted and BPs continue to improve- now on carvedilol 12.5mg BID, entresto 49/51mg BID, amlodipine 5mg/d
Lipid profile noted- rosuvastatin increased to 40mg/d
Cardiac rehab consulted
continue to monitor on tele another 24h
anticipate d/c in AM
Followup at [facility] at d/c as scheduled
PREADMIT DATA 01/12/24:
Patient is a 63-year-old male with past medical history significant for nonischemic cardiomyopathy, hypertension, DVT/PE, hyperlipidemia, NSVT status post ICD with subsequent ICD explant in 2019 who presents to emergency department 01/12/2024 with
chest pain radiating into left arm. Patient was in emergency department in November 2023 for chest pain and was noted to be hypertensive. Troponins were negative and symptoms improved with treatment of blood pressure. He underwent an outpatient
echocardiogram in December 2023 which showed EF of 45% with mild global hypokinesis. Patient reports he was chest pain free until the late evening of 01/10 when he developed chest pain after having intercourse. Patient went to sleep and noted
waxing and waning chest discomfort throughout the night. Upon awakening while getting ready to go to work chest pain became very intense with radiation down his left arm. On presentation to emergency department he was once again noted to be
hypertensive with blood pressure of 192/108. EKG showed sinus rhythm with T wave abnormalities in lateral leads. Initial troponin was 0.043. Chest x-ray showed no acute cardiopulmonary disease. Patient was provided sublingual nitroglycerin with
improvement of chest discomfort and blood pressure. He was placed on IV nitro and heparin drip. At time of this evaluation patient currently denying chest pain but reports he has an ache or heaviness in his chest. He also reports recently he has
had increased GERD and reflux symptoms and has been using a lot of Mylanta.
Progress Note - Safety Intern
Subjective
Date of Service: January 13, 2024
Denies cp/palps/dyspnea
oob ambulating
cath site without pain
Objective
Labs:
01/13/24 03:58
01/13/24 03:58
Labs
Hgb 13.8 g/dL (13.0-18.0) 01/13/24 03:58
Hct 39.7 % (39.0-52.0) 01/13/24 03:58
Plt Count 209 10^3/uL (130-400) 01/13/24 03:58
PT 12.4 Sec (11.4-14.6) 01/12/24 13:31
INR 0.90 01/12/24 13:31
APTT Cancelled 01/12/24 14:13
Sodium 142 mmol/L (135-145) 01/13/24 03:58
Potassium 4.0 mmol/L (3.5-5.1) 01/13/24 03:58
BUN 18 mg/dl (9-20) 01/13/24 03:58
Creatinine 0.8 mg/dL (0.7-1.3) 01/13/24 03:58
Glucose 114 mg/dl (70-99) H 01/13/24 03:58
Troponins
01/12/24 01/12/24 01/12/24
12:11 14:52 17:38
Troponin I 0.043 H* 0.078 H* D Cancelled
01/12/24 01/12/24 01/13/24
21:40 23:38 03:58
Troponin I 1.220 H* D Cancelled 1.350 H*
01/13/24
10:18
Troponin I 0.897 H* D
Vital Signs and I&O:
Vital Signs
Temp Pulse Resp BP Pulse Ox
97.9 F 67 18 122/82 98
01/13/24 12:07 01/13/24 12:07 01/13/24 12:07 01/13/24 12:07 01/13/24 12:07
Vital Signs
Temp Pulse Resp BP Pulse Ox
97.9 F 67 18 122/82 98
01/13/24 12:07 01/13/24 12:07 01/13/24 12:07 01/13/24 12:07 01/13/24 12:07
Intake & Output
01/11/24 01/12/24 01/13/24 01/14/24
06:59 06:59 06:59 06:59
Intake Total 300 / 300
Output Total 350 / 350
Balance -50 / -50
Physical Exam
Physical Exam
AAOx3, MAEE 5/5
RRR S1 S2 no murmurs
CTA bilat, non labored
soft abd, + bs
right radial cath site without ht/bleeding, non tender
bilat extremities w/palpable distal pulses, no edema
--- NOTE | 2024-01-13 14:39 | W.PN.UPDATE ---
Update Note
Progress Note Update
discussed with Dr. Wagoner today via [employer]; patient will be on Cardiology primary service. Hospitalist service will sign off this case.
[2024-01-13 15:07] LABS: ACT-LR - POC > 397 Seconds (116-155)
[2024-01-13 17:01] VITALS: BP 136/74
[2024-01-13] MEDS: NORVASC 5 MG PO (17:23)
[2024-01-13 18:44] VITALS: BP 146/84
[2024-01-13 22:31] VITALS: BP 146/89
[2024-01-14 05:17] VITALS: BP 127/85
[2024-01-14 05:44] LABS: Hemoglobin 13.3 g/dL (13.0-18.0); Mean Corp Hgb Conc. 33.3 g/dL (33.0-37.0); Mean Corpuscular Hgb 29.8 pg (27.0-31.0); Mean Corpuscular Volume 89.7 fL (80.0-94.0); Mean Platelet Volume 10.7 fL (7.4-10.4); Platelet Count 214 10^3/uL (130-400); Red Blood Cell Count 4.46 10^6/uL (4.70-6.10); Red Cell Dist. Width 12.8 % (11.5-14.5); White Blood Cell Count 8.8 10^3/uL (4.8-10.8)
[2024-01-14 06:10] LABS: Blood Urea Nitrogen 18 mg/dl (9-20); Calcium 8.7 mg/dl (8.4-10.2); Carbon Dioxide 20 mmol/L (22-30); Chloride 109 mmol/L (98-107); Estimated Creatinine Clearance 82 ml/min; Glucose 114 mg/dl (70-99); Potassium 4.2 mmol/L (3.5-5.1); Sodium 142 mmol/L (135-145); eGFR > 60.00
[2024-01-14 08:11] VITALS: BP 136/80
--- NOTE | 2024-01-14 08:29 | W.PN.CARDCBS ---
Addendum entered and electronically signed by Jordan Rodriguez MD 01/14/24 10:14:
I saw and examined the patient.
The FULLER BRUSH WORKER or PA's note was reviewed and I agree with the note.
Comment: General: Well developed, well nourished in NAD.
Neck: Supple, no JVD, HJR, carotids +2 B/L, no bruits bilaterally.
Heart: Non displaced PMI, RRR, no murmurs, No S3, S4, no rubs.
Lungs: Clear to auscultation bilaterally, no wheeze, rhonchi, rubs bilaterally,
normal expiratory phase.
Extremities: No clubbing, cyanosis or edema bilaterally.
Neuro: Grossly nonfocal, awake, alert and oriented x3.
Stable cardiology status for discharge. Echocardiogram with normal ejection fraction. Follow-up has been arranged. Discussed with patient in detail
Original Note:
Today's Communication / Plan
-
DAPT w/asa, brilinta
tolerating BP meds
followup arranged
home today
Impression / Plan
-
PCP: Jeyson Pimentel MD
CDY: Dharmesh Day MD
63 y/o, PMH NICM, prior DVT/PE and LV Thrombus (resolved), NSVT s/p ICD and then removed in 2019 after lead fracture. Recent ER visit for hypertensive episode and chest pain that ruled out for MD. Followup echo with global HK and EF 45%. (improved
from 35-40% in 10/2022).
One night ago, developed chest pain after exertion, intermittent overnight, radiating down LUE, some dyspnea. Presented to ER again, BP 190/100s, and EKG revealed lateral T wave abn. First troponin 0.043.
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
Echo 01/12- Nml LVSF, mild CLVH, nml WM, EF 50-55%, mild dilated Ao Root 3.8cm, ascending Ao 3.8cm
IMPRESSION:
NSTEMI
S/P prox OM2 PCI, 01/12/24
Cardiomyopathy, improved EF 50-55%
HTN
HLD
GERD
NSVT s/p ICD implant (2007) with lead fracture and subsequent removal (2019)
DVT/PE, LV thrombus (resolved- no longer on anticoagulation)
PLAN:
Peak troponin 1.35
Tele- SB 50-60s, no vt/arrhythmia- monitor with increase in BB
cath site stable
DAPT w/asa, brilinta- pt ok w/cost
echo results noted
Meds adjusted and BPs continue to improve- now on carvedilol 12.5mg BID, entresto 49/51mg BID, amlodipine 5mg/d
Lipid profile noted- severe interaction between rosuvastatin/ticagrelor- will stop rosuvastatin for atorvastatin 80mg/d
Cardiac rehab consulted
Followup at [facility] at d/c as scheduled
Home today
PREADMIT DATA 01/12/24:
Patient is a 63-year-old male with past medical history significant for nonischemic cardiomyopathy, hypertension, DVT/PE, hyperlipidemia, NSVT status post ICD with subsequent ICD explant in 2019 who presents to emergency department 01/12/2024 with
chest pain radiating into left arm. Patient was in emergency department in November 2023 for chest pain and was noted to be hypertensive. Troponins were negative and symptoms improved with treatment of blood pressure. He underwent an outpatient
echocardiogram in December 2023 which showed EF of 45% with mild global hypokinesis. Patient reports he was chest pain free until the late evening of 01/10 when he developed chest pain after having intercourse. Patient went to sleep and noted
waxing and waning chest discomfort throughout the night. Upon awakening while getting ready to go to work chest pain became very intense with radiation down his left arm. On presentation to emergency department he was once again noted to be
hypertensive with blood pressure of 192/108. EKG showed sinus rhythm with T wave abnormalities in lateral leads. Initial troponin was 0.043. Chest x-ray showed no acute cardiopulmonary disease. Patient was provided sublingual nitroglycerin with
improvement of chest discomfort and blood pressure. He was placed on IV nitro and heparin drip. At time of this evaluation patient currently denying chest pain but reports he has an ache or heaviness in his chest. He also reports recently he has
had increased GERD and reflux symptoms and has been using a lot of Mylanta.
Progress Note - Crosscutter
Subjective
Date of Service: January 14, 2024
Denies cp/palps/dyspnea
oob ambulating
cath site without pain
Objective
Labs:
01/14/24 05:24
01/14/24 05:24
Labs
Hgb 13.3 g/dL (13.0-18.0) 01/14/24 05:24
Hct 40.0 % (39.0-52.0) 01/14/24 05:24
Plt Count 214 10^3/uL (130-400) 01/14/24 05:24
PT 12.4 Sec (11.4-14.6) 01/12/24 13:31
INR 0.90 01/12/24 13:31
APTT Cancelled 01/12/24 14:13
Sodium 142 mmol/L (135-145) 01/14/24 05:24
Potassium 4.2 mmol/L (3.5-5.1) 01/14/24 05:24
BUN 18 mg/dl (9-20) 01/14/24 05:24
Creatinine 0.9 mg/dL (0.7-1.3) 01/14/24 05:24
Glucose 114 mg/dl (70-99) H 01/14/24 05:24
Troponins
01/12/24 01/12/24 01/12/24
12:11 14:52 17:38
Troponin I 0.043 H* 0.078 H* D Cancelled
01/12/24 01/12/24 01/13/24
21:40 23:38 03:58
Troponin I 1.220 H* D Cancelled 1.350 H*
01/13/24
10:18
Troponin I 0.897 H* D
Vital Signs and I&O:
Vital Signs
Temp Pulse Resp BP Pulse Ox
98.0 F 63 18 127/85 94
01/14/24 08:11 01/14/24 05:45 01/14/24 08:11 01/14/24 05:17 01/14/24 08:11
Vital Signs
Temp Pulse Resp BP Pulse Ox
98.0 F 63 18 127/85 94
01/14/24 08:11 01/14/24 05:45 01/14/24 08:11 01/14/24 05:17 01/14/24 08:11
Intake & Output
01/12/24 01/13/24 01/14/24 01/15/24
06:59 06:59 06:59 06:59
Intake Total 300 / 300 480 / 480
Output Total 350 / 350
Balance -50 / -50 480 / 480
Physical Exam
Physical Exam
AAOx3, MAEE 5/5
RRR S1 S2 no murmurs
CTA bilat, non labored
soft abd, + bs
right radial cath site without ht/bleeding, non tender
bilat extremities w/palpable distal pulses, no edema
[2024-01-14] MEDS: CRESTOR 40 MG PO (09:12)
[2024-01-14] MEDS: COREG 12.5 MG PO (09:12)
[2024-01-14] MEDS: BRILINTA 90 MG PO (09:12)
[2024-01-14] MEDS: LOW STRENGTH ASPIRIN 81 MG PO (09:12)
[2024-01-14] MEDS: MAG-TAB SR 84 MG PO (09:13)
[2024-01-14] MEDS: ENTRESTO 49 MG/51 MG 1 TAB PO (09:13)
--- NOTE | 2024-01-14 09:42 | W.DS.TRANS ---
DC Summary - Hose Stripper
-
Discharge Instructions:
Discharge Diagnosis/Procedures NSTEMI, s/p angioplasty and stent to Obtuse
Marginal artery
Diet Low Cholesterol
Driving Restrictions No driving for 24 hours
Bathing Restrictions OK to Shower
Other Services Cardiac Rehab
Instructions:
Stand-Alone Forms: DC Instructions- Cath/EP Lab
Changes to Home Medications: Yes
Discharge Medications:
DC Medications w/original date entered in [facility]
Focus Factor 1 cap PO DAILY Supplement 01/12/24
acetaminophen 325 mg tablet (Tylenol) 650 mg PO DAILYPRN PRN mild pain 01/12/24
amlodipine 5 mg tablet (Norvasc) 5 mg PO QPM Blood Pressure 01/12/24
coffee extract 100 mg-phosphatidyl serine 100 mg capsule (Neuriva Original) 1 cap PO DAILY Supplement 01/12/24
magnesium oxide 400 mg PO DAILY Electrolyte Repletion 01/12/24
multivitamin with minerals-folic acid 80 mcg chewable tablet 1 tab PO Q48H Supplement 01/12/24
naproxen sodium 220 mg tablet (Aleve) 440 mg PO BIDPRN PRN mild pain 01/12/24
ticagrelor 90 mg tablet (Brilinta) 90 mg PO BID #180 tabs 01/13/24
aspirin 81 mg chewable tablet 81 mg PO DAILY #0 tabs 01/14/24
atorvastatin 80 mg tablet (Lipitor) 80 mg PO QPM #90 tabs 01/14/24
carvedilol 12.5 mg tablet 12.5 mg PO BID #180 tabs 01/14/24
sacubitril 49 mg-valsartan 51 mg tablet (Entresto) 1 tab PO BID #180 tabs 01/14/24
Home Medication Changes
STOP: rosuvastatin
NEW: atorvastatin, aspirin, ticagrelor, entresto
DOSE INCREASE: carvedilol
Pending Results: No
--- NOTE | 2024-01-14 10:52 | PTCARENOTE ---
Received patient this morning ambulating in his room. Right wrist dressing was dry and intact with strong radial pulse palpable. Patient seen by cardiology and is ok for discharge. Reviewed discharge instructions with the patient and he states his
understanding. He is aware of medication changes, the importance of not missing a dose and is knowledgeable of his follow up appointments. Patient discharged home with his .
== END 2024-01-14 11:28 | disposition home or self-care (01) | DRG 322 ==
LOC: IVU 17:07
PROVIDERS: Hospitalist; Nurse Practitioner; Physician Assistant; ADMITTING PHYSICIAN Internal Medicine Interventional Cardiology; EMERGENCY PHYSICIAN Emergency Medicine; FAMILY PHYSICIAN Family Medicine; OTHER PHYSICIAN Nuclear Medicine Nuclear Cardiology
PROC: 02703DZ Dilation of Coronary Artery, One Artery with Intraluminal Device, Percutaneous Approach (ICD-10-PCS; 2024-01-12)
PROC: 4A023N7 Measurement of Cardiac Sampling and Pressure, Left Heart, Percutaneous Approach (ICD-10-PCS; 2024-01-12)
PROC: B211YZZ Fluoroscopy of Multiple Coronary Arteries using Other Contrast (ICD-10-PCS; 2024-01-12)
PROC: B215YZZ Fluoroscopy of Left Heart using Other Contrast (ICD-10-PCS; 2024-01-12)
DX: I21.4 Non-ST elevation (NSTEMI) myocardial infarction (principal); I42.8 Other cardiomyopathies; I50.22 Chronic systolic (congestive) heart failure; I25.10 Atherosclerotic heart disease of native coronary artery without angina pectoris; I16.0 Hypertensive urgency; I11.0 Hypertensive heart disease with heart failure; E78.5 Hyperlipidemia, unspecified; Z86.711 Personal history of pulmonary embolism; Z86.718 Personal history of other venous thrombosis and embolism; Z79.899 Other long term (current) drug therapy; Z86.79 Personal history of other diseases of the circulatory system
CPT/HCPCS: 71045; 80048; 80053; 80061; 83036; 83880; 84484; 85025; 85027; 85347; 85610; 85730; 86803; 93005; 93306; 93458; 96374; 96375; 99291; C1725; C1769; C1874; C1894; C9600; Q9950; Q9967

== ENCOUNTER 2024-03-12 08:43 | Outpatient (RCR) | payer OTHER, SELFPAY | END 2024-03-12 23:59 | disposition home or self-care (01) | LOC: CRHB 08:43 | PROVIDERS: ATTENDING PHYSICIAN Internal Medicine Cardiovascular Disease; FAMILY PHYSICIAN Family Medicine | DX: I25.2 Old myocardial infarction (principal); I25.10 Atherosclerotic heart disease of native coronary artery without angina pectoris; Z95.5 Presence of coronary angioplasty implant and graft | CPT/HCPCS: G0422; G0423 ==

== ENCOUNTER 2024-04-09 08:40 | Outpatient (RCR) | payer OTHER, SELFPAY | END 2024-04-09 23:59 | disposition home or self-care (01) | LOC: CRHB 08:40 | PROVIDERS: ATTENDING PHYSICIAN Internal Medicine Cardiovascular Disease; FAMILY PHYSICIAN Family Medicine | DX: I25.2 Old myocardial infarction (principal); I21.4 Non-ST elevation (NSTEMI) myocardial infarction (principal); I25.10 Atherosclerotic heart disease of native coronary artery without angina pectoris; Z95.5 Presence of coronary angioplasty implant and graft | CPT/HCPCS: G0422; G0423 ==

== ENCOUNTER 2024-05-10 08:40 | Outpatient (RCR) | payer OTHER, SELFPAY | END 2024-05-10 23:59 | disposition home or self-care (01) | LOC: CRHB 08:40 | PROVIDERS: ATTENDING PHYSICIAN Internal Medicine Cardiovascular Disease; FAMILY PHYSICIAN Family Medicine | DX: I25.10 Atherosclerotic heart disease of native coronary artery without angina pectoris (principal); I25.2 Old myocardial infarction (principal); Z95.5 Presence of coronary angioplasty implant and graft; I21.4 Non-ST elevation (NSTEMI) myocardial infarction | CPT/HCPCS: G0422 ==

== ENCOUNTER 2024-05-24 09:14 | Outpatient (RCR) | payer OTHER, SELFPAY | END 2024-06-02 09:04 | disposition home or self-care (01) | LOC: CRHB 09:14 | PROVIDERS: ATTENDING PHYSICIAN Internal Medicine Cardiovascular Disease; FAMILY PHYSICIAN Family Medicine | DX: I21.4 Non-ST elevation (NSTEMI) myocardial infarction (principal); I25.10 Atherosclerotic heart disease of native coronary artery without angina pectoris; I25.2 Old myocardial infarction; Z95.5 Presence of coronary angioplasty implant and graft | CPT/HCPCS: 93798; G0422; G0423 ==

== ENCOUNTER 2024-11-29 21:39 | Emergency (ER) | payer OTHER, SELFPAY ==
[2024-11-29 21:40] VITALS: BP 142/91
[2024-11-29 22:00] VITALS: BP 142/91
[2024-11-29 22:11] LABS: Hematocrit 41.6 % (39.0-52.0); Hemoglobin 13.7 g/dL (13.0-18.0); Mean Corp Hgb Conc. 32.9 g/dL (33.0-37.0); Mean Corpuscular Volume 88.7 fL (80.0-94.0); Nucleated Red Blood Cells % 0 % (-); Platelet Count 274 10^3/uL (130-400); Red Cell Dist. Width 13.7 % (11.5-14.5)
[2024-11-29 22:21] LABS: ALT (SGPT) 23 U/L (0-50); AST (SGOT) 21 U/L (17-59); Albumin 4.2 g/dl (3.5-5.0); Alkaline Phosphatase 114 U/L (38-126); Blood Urea Nitrogen 14 mg/dl (9-20); Calcium 9.3 mg/dl (8.4-10.2); Carbon Dioxide 24 mmol/L (22-30); Chloride 109 mmol/L (98-107); Glucose 121 mg/dl (70-99); Lipase 90 U/L (23-300); Potassium 3.7 mmol/L (3.5-5.1); Sodium 137 mmol/L (135-145); Total Protein 7.7 g/dl (6.3-8.2); eGFR > 60.00
[2024-11-29 22:30] LABS: Troponin I 0.015 ng/ml
[2024-11-29 23:01] VITALS: BP 139/88
[2024-11-29 23:02] VITALS: BMI 25.7
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
[2024-11-29] MEDS: CARAFATE SUSPENSION 1 GM PO (23:39)
[2024-11-30] VITALS (8 sets, daily range): BP systolic 122–141; BP diastolic 78–90
[2024-11-30 00:21] LABS: D-Dimer 0.45 ug/mlFEU (0.00-0.50)
[2024-11-30 01:21] LABS: Troponin I 0.024 ng/ml
[2024-11-30] MEDS: NITROSTAT (SUBLINGUAL) 0.4 MG SL (02:03)
[2024-11-30] MEDS: LOW STRENGTH ASPIRIN 324 MG PO (02:05)
[2024-11-30 05:39] LABS: Troponin I 0.014 ng/ml
== END 2024-11-30 06:52 | disposition home or self-care (01) ==
LOC: EMR 21:39
PROVIDERS: Emergency Medicine; Physician Assistant; EMERGENCY PHYSICIAN Emergency Medicine; FAMILY PHYSICIAN Family Medicine
DX: R07.9 Chest pain, unspecified (principal); E78.5 Hyperlipidemia, unspecified; I11.0 Hypertensive heart disease with heart failure; I50.9 Heart failure, unspecified; I25.10 Atherosclerotic heart disease of native coronary artery without angina pectoris; I25.2 Old myocardial infarction; Z95.5 Presence of coronary angioplasty implant and graft; Z86.711 Personal history of pulmonary embolism; Z79.02 Long term (current) use of antithrombotics/antiplatelets; I42.9 Cardiomyopathy, unspecified; Z79.82 Long term (current) use of aspirin
CPT/HCPCS: 99285; 71046; 80053; 83690; 84484; 85025; 85379; 93005

== ENCOUNTER → 2024-12-29 07:57 | Outpatient (REF) | payer OTHER, SELFPAY | LOC: HWRCS 07:57 | PROVIDERS: ATTENDING PHYSICIAN Internal Medicine Cardiovascular Disease; FAMILY PHYSICIAN Family Medicine | DX: I42.8 Other cardiomyopathies (principal); I10 Essential (primary) hypertension; I47.20 Ventricular tachycardia, unspecified | CPT/HCPCS: 78452; 93017; A9500 ==